=== PATIENT | female | born 1990 | race Caucasian/White ===

== ENCOUNTER 2022-10-25 07:33 | Emergency (ER) | payer OTHER, SELFPAY ==
--- NOTE | ~2022-10-25 | XR_ITS ---
EXAMINATION: XR CHEST CLINICAL INFORMATION: Chest pain COMPARISON: None available. TECHNIQUE: 2 views of the chest were obtained. FINDINGS: No significant abnormality is noted involving the heart, lungs, mediastinum, bony thorax or soft tissues. XR/XR chest 2V IMPRESSION: Unremarkable examination.
--- NOTE | 2022-10-25 07:45 | ECG_ITS ---
Test Reason : CP Blood Pressure : / mmHG Vent. Rate : 059 BPM Atrial Rate : 059 BPM P-R Int : 148 ms QRS Dur : 086 ms QT Int : 436 ms P-R-T Axes : 014 049 010 degrees QTc Int : 431 ms Sinus bradycardia Otherwise normal ECG No previous ECGs available Referred By: Yamilet Torres Electronically Signed By:ROSEY HAYNES
[2022-10-25 08:06] VITALS: BP 150/70; PULSE 70; O2SAT 97
[2022-10-25 08:08] VITALS: BP 145/87; PULSE 66; RESP 18; TEMP 36.6; O2SAT 98; BMI 47.9
--- NOTE | 2022-10-25 08:13 | ED_ITS ---
HPI - General Adult General Chief complaint: General Medical Stated complaint: R side chest pain per EMS Time Seen by Provider: 10/25/22 08:13 Source: patient, family (patient's mother) and EMS Mode of arrival: EMS Limitations: no limitations History of Present Illness HPI narrative: Patient is a 32 year old assigned female at with no reported medical history presenting to the emergency department today with right sided chest pain. Patient states that she is having constant right sided chest pain that is worse with movement. Patient states that it is going up to the right side of the neck as well. Patient denies any dizziness, lightheadedness, abdominal pain, nausea, vomiting, fever, chills, blurry vision, double vision, loss of vision, difficulty breathing, shortness of breath, back pain, night sweats, pain with urination, increased urinary frequency, increased urinary urgency, blood in her urine or stool, syncope or a near syncopal episode, recent trauma or falls, bowel incontinence, bladder incontinence, bowel retention, bladder retention, or any other complaints at this time. Onset (ago): hour(s) Location: chest, right and upper extremity Radiation: neck and extremity Severity: mild Severity scale (1-10): 3 Quality: dull Pain Consistency: constant Relieving factors: none Exacerbating factors: movement Associated symptoms: denies other symptoms Treatments prior to arrival: none Related Data Previous Rx's Medication Instructions Recorded cyclobenzaprine 5 mg tablet 5 mg PO TID PRN muscle spasm 7 10/25/22 days #21 tabs naproxen 500 mg tablet 500 mg PO BID 7 days #14 tabs 10/25/22 prednisone 20 mg tablet 20 mg PO DAILY 7 days #7 tabs 10/25/22 Allergies Allergy/AdvReac Type Severity Reaction Status Date / Time No Known Allergies Allergy Verified 10/25/22 09:33 Review of Systems Constitutional: Constitutional: Reports no additional constitutional complaints, Denies chills, Denies fever(s) and Denies night sweats Eyes: Eyes: Reports no additional eye complaints, Denies blurry vision, Denies change in vision, Denies diplopia, Denies eye discharge, Denies loss of vision and Denies eye pain ENT: Denies dizziness and Reports neck pain Cardiovascular: Cardiovascular: Reports no additional cardiovascular complaints, Reports chest pain, Denies lightheadedness, Denies Loss of Consciousness and Denies dyspnea Respiratory: Respiratory: Reports no additional respiratory complaints and Denies dyspnea Gastrointestinal: Gastrointestinal: Reports no additional gastrointestinal complaints, Denies abdominal pain, Denies melena, Denies hematochezia, Denies change in bowel habits and Denies change in stool character Genitourinary: Genitourinary: Denies hematuria, Denies urinary frequency, Denies dysuria, Denies urinary incontinence, Denies urinary hesitancy and Denies urinary urgency Musculoskeletal: Musculoskeletal: Reports no additional musculoskeletal complaints, Reports neck pain, Denies numbness and Denies tingling Neurologic: Denies dizziness, Denies loss of vision, Denies numbness and Denies tingling Psychiatric: Psychiatric: Reports no additional psychiatric complaints Endocrine: Endocrine: Reports no additional endocrine complaints Hematologic/Lymphatic: Hematologic/Lymphatic: Reports no additional hematologic/lymphatic complaints Allergic/Immunologic: Allergic/Immunologic: Reports no additional allergic/immunologic complaints PMFSH Past Medical History Attestation statement: The following information was validated with the patient. (all information validated with the patient's mother) Source: old records reviewed, obtained from family (patient's mother) and nursing notes reviewed Social History Social History Alcohol intake: current Alcohol intake frequency: holidays/special occasions only Smoked in Last 30 Days: No Advance Directives: No Advance Directives Information Provided: Yes Patient : No Physical Exam ED Vital Signs: Vital Signs - 24 hr 10/25/22 08:08 10/25/22 10:05 Temperature 98 F 98 F Pulse Rate 66 66 Respiratory Rate 18 18 Blood Pressure 145/87 H 145/87 H Pulse Oximetry 98 98 Oxygen Delivery Method Room Air Room Air BMI result Body Mass Index 47.9 Const General: cooperative, no acute distress, alert and awake Nutritional Appearance: well nourished Orientation/consciousness: patient oriented x3 Limitations: no limitations HENMT Head: Yes normal to inspection and Yes atraumatic Ears: hearing grossly normal bilaterally and external ears normal General nose exam: Normal external nose present, no nasal discharge noted and no epistaxis Face and sinus: Yes normal facial exam, No abrasion and No laceration Mouth: Normal oral and palatal mucosa present, no drooling and no muffled voice Eyes General: appearance normal, both eyes and all related structures Periorbital: periorbital findings normal Eyelids: Yes eyelids normal Conjunctivae: conjunctivae normal Pupils: Equal, round and reactive pupils present EOM: EOMs intact bilaterally Neck Neck: Yes normal visual inspection, Yes full ROM and Yes no lymphadenopathy Chest Chest palpation & inspection: normal inspection of the chest Resp Effort & Inspection: normal respiratory effort and able to speak in complete sentences Auscultation: clear to auscultation bilaterally Cardio Rate: regular rate Rhythm: regular rhythm GI Inspection: Yes normal to inspection Palpation (GI): Soft to palpation, not firm, nontender, no guarding and not rigid Neuro General: patient oriented x3 and moves all extremities Cranial nerves: Yes Equal, round and reactive pupils present Cognition (Neuro): normal cognition Motor exam (neuro): 5/5 motor strength present throughout Sensory Exam: Normal double simultaneous stimulation for sensation Coordination: [id number] test normal Extrem General: Yes normal to inspection, Yes full ROM and Yes capillary refill normal Psych Appearance: grossly normal Mental Status: mental status grossly normal Affect: normal affect Attitude: cooperative Thought process: Normal thought process present Thought content: Normal thought content present Insight: Good insight present (Psych) Medications Administered Discontinued Medications Generic Name Dose Route Start Last Admin Trade Name Pedroq PRN Reason Stop Dose Admin Cyclobenzaprine HCl 5 mg 10/25/22 08:45 10/25/22 09:32 Cyclobenzaprine Hcl 5 Mg Tablet PO 10/25/22 08:46 5 mg ONCE ONE Administration Ketorolac Tromethamine 15 mg 10/25/22 08:45 10/25/22 09:32 Ketorolac Tromethamine 15 Mg/Ml Vial IVPUSH 10/25/22 08:46 15 mg ONCE ONE Administration Methylprednisolone Sodium Succinate 60 mg 10/25/22 08:45 10/25/22 09:32 Methylprednisolone Sod Succ 125 Mg/2 Ml Vial IVPUSH 10/25/22 08:46 60 mg ONCE ONE Administration Medical Decision Making Medical Decision Making MDM Narrative: Patient is a 32 year old assigned female at with no reported medical history presenting to the emergency department today with right sided chest, shoulder, and neck pain. Patient's physical exam was unremarkable. Patient's blood work was unremarkable. Patient's EKG was unremarkable. Patient's chest x- ray showed no acute process. Patient's current clinical presentation is most consistent with cervical radiculopathy. I explained my physical exam findings as well as all test results to the patient. I answered all questions asked by the patient. I stressed the importance of the patient taking her medication as prescribed. I stressed the importance of the patient following up with her primary care provider. I stressed the importance of the patient returning to the emergency department immediately if her symptoms were to worsen or if she were to develop any dizziness, shortness of breath, difficulty breathing, chest pain, blurry vision, loss of vision, nausea, vomiting, abdominal pain, fever, chills, back pain, or any other complaints. Patient verbalized agreement and understanding with this treatment plan and discharge. Differential Diagnosis Differential Diagnoses: The differential diagnosis associated with the presentation includes cervical radiculopathy Admission/Observation Consideration of admission/observation: Escalation of care including admis vincent/observation considered Patient would have been admitted had there been a cardiovascular process causing her chest pain. Lab Data MDM Lab Attestation statement: I reviewed the patient's lab results. 10/25/22 09:36 10/25/22 09:36 Labs: Lab Results 10/25/22 10/25/22 10/25/22 Range/Units 09:36 09:36 09:36 WBC 7.8 (4.8-10.8) X10*3/uL RBC 4.09 L (4.20-5.50) X10*6/uL Hgb 12.5 (12.0-16.0) g/dl Hct 37.0 (37.0-47.0) % MCV 90.5 (80.0-98.0) fL MCH 30.6 (27.0-33.0) pg MCHC 33.8 (31.0-35.0) g/dl RDW 12.1 (11.0-16.0) % Plt Count 303 (160-400) X10*3/uL MPV 9.3 L (9.4-12.3) fL Immature Gran % (Auto) 0.3 (0.0-0.4) % Neut % (Auto) 68.1 (45-73) % Lymph % (Auto) 24.6 (20-40) % Barron % (Auto) 5.5 (2-11) % Eos % (Auto) 1.0 (0-4) % Baso % (Auto) 0.5 (0-2) % Lymph # (Auto) 1.9 (1.2-4.9) X10*3/uL Barron # (Auto) 0.4 (0.1-1.2) X10*3/uL Eos # (Auto) 0.1 (0.0-0.4) X10*3/uL Baso # (Auto) 0.0 (0.0-0.2) X10*3/uL Abs Immat Gran (auto) 0.02 (0.00-0.03) X10*3/uL Absolute Neuts (auto) 5.3 (2.0-8.3) x10*3/uL Absolute Nucleated RBC 0.000 (0.0-0.012) X10*3/uL Nucleated RBC % (auto) 0.0 (0.0-0.2) /100WBC Sodium 140 (135-145) mmol/L Potassium 4.3 (3.3-5.1) mmol/L Chloride 112 H (96-108) mmol/L Carbon Dioxide 22 (22-29) mmol/L Anion Gap 10 L (12-20) BUN 10 (9-16) mg/dL Creatinine 0.78 (0.5-1.4) mg/dL Estim Creat Clear Calc 137.7 Estimated GFR > 60 Random Glucose 91 (60-115) mg/dL Calcium 8.8 (8.4-10.2) mg/dL Magnesium 1.9 (1.6-2.6) mg/dL Total Bilirubin 0.5 (0.0-1.0) mg/dL AST 17 (5-31) U/L ALT 35 H (0-31) U/L Alkaline Phosphatase 53 (39-117) U/L Troponin I High Sens < 2.7 (<3.5-17.0) ng/L B-Natriuretic Peptide (<100) pg/mL Total Protein 6.6 (6.5-8.0) g/dL Albumin 4.0 (3.5-5.0) g/dL Beta HCG, Quant < 2 mIU/mL COVID-19 (M[facility]ADOU) (Negative) COVID-19 Clin Com 10/25/22 10/25/22 Range/Units 09:36 09:36 WBC (4.8-10.8) X10*3/uL RBC (4.20-5.50) X10*6/uL Hgb (12.0-16.0) g/dl Hct (37.0-47.0) % MCV (80.0-98.0) fL MCH (27.0-33.0) pg MCHC (31.0-35.0) g/dl RDW (11.0-16.0) % Plt Count (160-400) X10*3/uL MPV (9.4-12.3) fL Immature Gran % (Auto) (0.0-0.4) % Neut % (Auto) (45-73) % Lymph % (Auto) (20-40) % Barron % (Auto) (2-11) % Eos % (Auto) (0-4) % Baso % (Auto) (0-2) % Lymph # (Auto) (1.2-4.9) X10*3/uL Barron # (Auto) (0.1-1.2) X10*3/uL Eos # (Auto) (0.0-0.4) X10*3/uL Baso # (Auto) (0.0-0.2) X10*3/uL Abs Immat Gran (auto) (0.00-0.03) X10*3/uL Absolute Neuts (auto) (2.0-8.3) x10*3/uL Absolute Nucleated RBC (0.0-0.012) X10*3/uL Nucleated RBC % (auto) (0.0-0.2) /100WBC Sodium (135-145) mmol/L Potassium (3.3-5.1) mmol/L Chloride (96-108) mmol/L Carbon Dioxide (22-29) mmol/L Anion Gap (12-20) BUN (9-16) mg/dL Creatinine (0.5-1.4) mg/dL Estim Creat Clear Calc Estimated GFR Random Glucose (60-115) mg/dL Calcium (8.4-10.2) mg/dL Magnesium (1.6-2.6) mg/dL Total Bilirubin (0.0-1.0) mg/dL AST (5-31) U/L ALT (0-31) U/L Alkaline Phosphatase (39-117) U/L Troponin I High Sens (<3.5-17.0) ng/L B-Natriuretic Peptide < 10 (<100) pg/mL Total Protein (6.5-8.0) g/dL Albumin (3.5-5.0) g/dL Beta HCG, Quant mIU/mL COVID-19 ([facility]ADOU) Negative (Negative) COVID-19 Clin Com See Note Independent Interpretation I performed an independent interpretation of an: EKG and Plain X-Ray Interpretation: Vent. Rate: 059 BPM ? ? Atrial Rate: 059 BPM P-R Int: 148 ms? QRS Dur: 086 ms QT Int: 436 ms ? ? ? P-R-T Axes: 014 049 010 degrees QTc Int: 431 ms ? Sinus bradycardia Otherwise normal ECG No previous ECGs available ? Electronically Signed By:MACK JAIME Dictated By: Mack Jaime MD Signed By: Electronically signed by Mack Jaime MD 10/25/22 1404 My interpretation is in agreement with the radiologist's impression of this imaging study. EXAMINATION: XR CHEST CLINICAL INFORMATION: Chest pain COMPARISON: None available. TECHNIQUE: 2 views of the chest were obtained. FINDINGS: No significant abnormality is noted involving the heart, lungs, mediastinum, bony thorax or soft tissues. XR/XR chest 2V IMPRESSION: Unremarkable examination. Dictated By: Austen Diaz MD Signed By: Electronically signed by Austen Diaz MD 10/25/22 0811 Discharge Plan Discharge Clinical Impression: Cervical radiculopathy Patient Disposition: Home, Self-Care Instructions: Cervical Radiculopathy (ED) Additional Instructions: Follow up with your primary care provider and a division operations specialist. Return to the emergency department immediately if your symptoms worsen or if you develop any dizziness, shortness of breath, difficulty breathing, chest pain, blurry vision, loss of vision, nausea, vomiting, abdominal pain, fever, chills, back pain, or any other complaints. Prescriptions: New prednisone 20 mg tablet 20 mg PO DAILY 7 Days Qty: 7 0RF naproxen 500 mg tablet 500 mg PO BID 7 Days Qty: 14 0RF cyclobenzaprine 5 mg tablet 5 mg PO TID PRN (Reason: muscle spasm) 7 Days Qty: 21 0RF Referrals: [facility] Family [facility] [Provider Group] (Call to establish and follow up with a primary care provider. If you already have a primary care provider, please follow up with them.) [facility] Primary [facility] [Provider Group] (Call to establish and follow up with a primary care provider. If you already have a primary care provider, please follow up with them.) [facility] Primary CareHarry [Provider Group] (Call to establish and follow up with a primary care provider. If you already have a primary care provider, please follow up with them.) [facility] [Provider Group] (Call to establish and follow up with a division operations specialist. ) Stand Alone Forms: Work/School Release Interventions: ED Discharge Assessment Last Done: 10/25/22 10:33 Discharge Date/Time: 10/25/22 10:34 Print Language: Ethiopian
[2022-10-25] MEDS: methylPREDNISolone Sod Succ 125 MG/2 ML VIAL 60 MG IVPUSH (09:32)
[2022-10-25] MEDS: Cyclobenzaprine HCl 5 MG TABLET PO (09:32)
[2022-10-25] MEDS: Ketorolac Tromethamine 15 MG/ML VIAL IVPUSH (09:32)
[2022-10-25 09:42] LABS: MANUAL DIFF FLAG NO
[2022-10-25 09:46] LABS: Basophils Percent Auto 0.5 % (0-2); Eosinophils Absolute Auto 0.1 X10*3/uL (0.0-0.4); Hemoglobin 12.5 g/dl (12.0-16.0); Imm Gran Abs Auto 0.02 X10*3/uL (0.00-0.03); Imm Gran Pct Auto 0.3 % (0.0-0.4); Lymphocytes Absolute Auto 1.9 X10*3/uL (1.2-4.9); Lymphocytes Percent Auto 24.6 % (20-40); Mean Corpuscular HGB Conc 33.8 g/dl (31.0-35.0); Mean Corpuscular Hemoglobin 30.6 pg (27.0-33.0); Mean Corpuscular Volume 90.5 fL (80.0-98.0); Mean Platelet Volume 9.3 fL (9.4-12.3); Monocytes Absolute Auto 0.4 X10*3/uL (0.1-1.2); Monocytes Percent Auto 5.5 % (2-11); Neutrophils Absolute Auto 5.3 x10*3/uL (2.0-8.3); Neutrophils Percent Auto 68.1 % (45-73); Platelet Count 303 X10*3/uL (160-400); Red Blood Count 4.09 X10*6/uL (4.20-5.50); Red Cell Distribution Width 12.1 % (11.0-16.0); White Blood Count 7.8 X10*3/uL (4.8-10.8)
[2022-10-25 10:01] LABS: COVID-19 Test Negative (Negative); IDNOW Serial# BCCEAD1C
[2022-10-25 10:05] VITALS: BP 145/87; PULSE 66; RESP 18; TEMP 36.6; O2SAT 98
[2022-10-25 10:07] LABS: B Type Natriuretic Peptide < 10 pg/mL (<100)
[2022-10-25 10:08] LABS: Alanine Aminotransferase 35 U/L (0-31); Alkaline Phosphatase 53 U/L (39-117); Anion Gap 10 (12-20); Aspartate Amino Transferase 17 U/L (5-31); Bilirubin Total 0.5 mg/dL (0.0-1.0); Blood Urea Nitrogen 10 mg/dL (9-16); Calcium 8.8 mg/dL (8.4-10.2); Carbon Dioxide 22 mmol/L (22-29); Chloride 112 mmol/L (96-108); Creatinine Clr Calc Pharmacy 137.7; Estimated Glomerular Filt Rate > 60; Glucose Random 91 mg/dL (60-115); Magnesium 1.9 mg/dL (1.6-2.6); Potassium 4.3 mmol/L (3.3-5.1); Sodium 140 mmol/L (135-145); Total Protein 6.6 g/dL (6.5-8.0)
[2022-10-25 10:13] LABS: HCG Quantitative < 2 mIU/mL; Troponin-I High Sensitivity < 2.7 ng/L (<3.5-17.0)
== END 2022-10-25 10:34 | disposition home or self-care (01) ==
PROVIDERS: Physician Assistant Medical; Emergency Provider Emergency Medicine Emergency Medical Services
DX: M54.12 Radiculopathy, cervical region (principal); Z20.822 Contact with and (suspected) exposure to COVID-19; R07.9 Chest pain, unspecified
CPT/HCPCS: 71046; 80053; 83735; 83880; 84484; 84702; 85025; 87635; 93005; 96374; 96375; 99284; 99285; J1885; J2930

== ENCOUNTER 2023-08-17 18:58 | Emergency (ER) | payer OTHER, SELFPAY ==
--- NOTE | ~2023-08-17 | US_ITS ---
EXAMINATION: US ABDOMEN LIMITED CLINICAL INFORMATION: Right upper quadrant pain, biliary colic.. COMPARISON: None available. TECHNIQUE: Real-time imaging of the right upper quadrant abdominal viscera. FINDINGS: PANCREAS: Normal. LIVER: Normal. The liver is normal in size. The liver contour is normal. Parenchymal echogenicity is normal. No focal hepatic lesion. There is no intrahepatic biliary duct dilatation seen. GALLBLADDER: There are multiple echogenic stones with gallbladder wall thickness of 0.3 cm. COMMON BILE DUCT: Normal in caliber measuring 0.62 cm in diameter. RIGHT KIDNEY: There is a small echogenic lesion in the lower pole right kidney suggestive of angiomyolipoma. Measures 0.5 x 0.5 x 0.6 cm. No hydronephrosis. No renal calculi or focal parenchymal lesions. The kidney measures 11.2 cm in maximum dimension. FREE FLUID: None. US/US abdomen limited IMPRESSION: 1. Cholelithiasis without wall thickening. 2. Small angiomyolipoma lower pole right kidney. 3. Rest of the abdominal ultrasound is unremarkable.
[2023-08-17 19:09] VITALS: BP 146/83; PULSE 57; RESP 20; TEMP 36.4; O2SAT 100; BMI 44.2
--- NOTE | 2023-08-17 19:15 | ED.ABDPAIN ---
HPI - Abdominal Pain General Chief Complaint: Abdominal Pain Stated Complaint: abdominal pain, 2 weeks post Time Seen by Provider: 08/17/23 19:00 Source: patient and EMS Mode of arrival: EMS Limitations: no limitations History of Present Illness HPI narrative: patient had a baby 2 weeks ago. Today slowly developed epigastric pain going into the back that got progressively worse. She denies any history of gallstones MD elicited complaint: abdominal pain Onset (ago): hour(s) Pain Consistency: constant Location: epigastric Severity: moderate Quality: aching Radiation: back Related Data Previous Rx's Medication Instructions Recorded cyclobenzaprine 5 mg tablet 5 mg PO TID PRN muscle spasm 7 10/25/22 days #21 tabs naproxen 500 mg tablet 500 mg PO BID 7 days #14 tabs 10/25/22 prednisone 20 mg tablet 20 mg PO DAILY 7 days #7 tabs 10/25/22 ondansetron 4 mg disintegrating 4 mg PO Q8H PRN nausea and 08/17/23 tablet vomiting 5 days #15 tabs pantoprazole 40 mg tablet,delayed 40 mg PO DAILY #20 tabs 08/17/23 release (Protonix) Allergies Allergy/AdvReac Type Severity Reaction Status Date / Time No Known Allergies Allergy Verified 10/25/22 09:33 Review of Systems Review of Systems Yes all other systems are reviewed and are negative Denies Sensory deficit (Neuro) [facility] Social History Social History Alcohol intake: current Alcohol intake frequency: holidays/special occasions only Smoked in Last 30 Days: No Use of substances other than those prescribed or required for medical reasons: No Advance Directives: No Advance Directives Information Provided: No Patient : No Physical Exam ED Vital Signs: Vital Signs - 24 hr 08/17/23 19:09 Temperature 97.5 F Pulse Rate 57 Respiratory Rate 20 Blood Pressure 146/83 H Pulse Oximetry 100 Oxygen Delivery Method Room Air BMI result Body Mass Index 44.2 Const Other: patient with a lot of pain with wretching Nutritional Appearance: obese Orientation/consciousness: oriented to person and patient oriented x3 Limitations: no limitations HENMT Head: Yes normal to inspection Ears: external ears normal General nose exam: Normal external nose present Mouth: Normal oral and palatal mucosa present and oropharynx normal Throat: Yes posterior oropharynx normal Eyes General: appearance normal, both eyes and all related structures Neck Neck: Yes normal visual inspection Chest Chest palpation & inspection: normal inspection of the chest Resp Auscultation: clear to auscultation bilaterally Cardio Jugular venous distension: no JVD Rate: regular rate Rhythm: regular rhythm Heart sounds: S1 normal heart sound present and S2 normal heart sound present GI Other: right upper quadrant abdominal tenderness with guarding Palpation (GI): No hepatosplenomegaly present Auscultation: normal bowel sounds General: Yes no CVA tenderness Back/Spine/Pelvis Back: no CVA tenderness Skin General skin exam: no rashes or lesions noted Neuro General: oriented to person and patient oriented x3 Cranial nerves: Yes CN's II-XII intact bilaterally Motor exam (neuro): 5/5 motor strength present throughout Sensory Exam: No Sensory deficit (Neuro) Extrem General: Yes normal to inspection Psych Appearance: grossly normal Course Reevaluation(s) Reevaluation #1: patient improved feeling better, no evidence of cholecystits or CBD obstruction or pancreatitis or ascending cholangitis Time: 21:46 Medical Decision Making Differential Diagnosis Differential Diagnoses: The differential diagnosis associated with the presentation includes (cholecystitis, ascending cholangitis, biliary colic, pancreatitis were all considered) Admission/Observation Consideration of admission/observation: Escalation of care including admission/observation considered (Upon arrival patient considered for admission) Lab Data MDM Lab Attestation statement: I reviewed the patient's lab results. 08/17/23 19:22 08/17/23 19:22 Labs: Lab Results 08/17/23 Range/Units 19:22 WBC 9.2 (4.8-10.8) X10*3/uL RBC 4.40 (4.20-5.50) X10*6/uL Hgb 12.1 (12.0-16.0) g/dl Hct 36.6 L (37.0-47.0) % MCV 83.2 (80.0-98.0) fL MCH 27.5 (27.0-33.0) pg MCHC 33.1 (31.0-35.0) g/dl RDW 13.6 (11.0-16.0) % Plt Count 361 (160-400) X10*3/uL MPV 9.4 (9.4-12.3) fL Immature Gran % (Auto) 0.2 (0.0-0.4) % Neut % (Auto) 78.8 H (45-73) % Lymph % (Auto) 14.1 L (20-40) % [place]ether % (Auto) 5.4 (2-11) % Eos % (Auto) 1.1 (0-4) % Baso % (Auto) 0.4 (0-2) % Lymph # (Auto) 1.3 (1.2-4.9) X10*3/uL Meriwether # (Auto) 0.5 (0.1-1.2) X10*3/uL Eos # (Auto) 0.1 (0.0-0.4) X10*3/uL Baso # (Auto) 0.0 (0.0-0.2) X10*3/uL Abs Immat Gran (auto) 0.02 (0.00-0.03) X10*3/uL Absolute Neuts (auto) 7.2 (2.0-8.3) x10*3/uL Absolute Nucleated RBC 0.000 (0.0-0.012) X10*3/uL Nucleated RBC % (auto) 0.0 (0.0-0.2) /100WBC Hold Blue Top SEE NOTE Sodium 141 (135-145) mmol/L Potassium 3.7 (3.3-5.1) mmol/L Chloride 107 (96-108) mmol/L Carbon Dioxide 23 (22-29) mmol/L Anion Gap 15 (12-20) BUN 11 (9-16) mg/dL Creatinine 0.87 (0.5-1.4) mg/dL Estim Creat Clear Calc 116.5 Estimated GFR > 60 Random Glucose 90 (60-115) mg/dL Calcium 9.4 D (8.4-10.2) mg/dL Total Bilirubin 0.7 (0.0-1.0) mg/dL AST 49 H (5-31) U/L ALT 39 H (0-31) U/L Alkaline Phosphatase 84 (39-117) U/L Total Protein 7.2 (6.5-8.0) g/dL Albumin 4.1 (3.5-5.0) g/dL Lipase 17 (8-78) U/L Independent Interpretation I performed an independent interpretation of an: Ultrasound (bedside ultrasound showed Gallstones. Official US the same) Radiology Impression Discussion of test interpretation with radiology: I have reviewed the radiologist's reading. Independent Historian Clinical information obtained from an independent historian. History obtained from or confirmed by: Spouse and EMS Prescription Management I considered prescription management with: Pain Medication (patient improved will not give narcotics at this time) Medications Administered Generic Name Dose Route Start Last Admin Trade Name Freq PRN Reason Stop Dose Admin Sodium Chloride 1,000 mls @ 250 mls/hr 08/17/23 19:30 08/17/23 19:27 Ns IVCONT 08/17/23 23:29 250 mls/hr .Q4H DAVIS Administration Discontinued Medications Generic Name Dose Route Start Last Admin Trade Name Freq PRN Reason Stop Dose Admin Morphine Sulfate 4 mg 08/17/23 19:16 08/17/23 19:26 Morphine Sulfate 4 Mg/Ml Cartridge IVPUSH 08/17/23 19:17 4 mg ONCE ONE Administration Protocol Ondansetron HCl 4 mg 08/17/23 19:16 08/17/23 19:27 Ondansetron Hcl 4 Mg/2 Ml Vial IVPUSH 08/17/23 19:17 4 mg ONCE ONE Administration Pantoprazole Sodium 40 mg 08/17/23 19:16 08/17/23 19:27 Pantoprazole Sodium 40 Mg/10 Ml Vial IVPUSH 08/17/23 19:17 40 mg ONCE ONE Administration Discharge Plan Discharge Clinical Impression: Gallstones, Biliary colic Patient Disposition: Home, Self-Care Instructions: Biliary Colic (ED), Gallstones (ED) Prescriptions: New pantoprazole [Protonix] 40 mg tablet,delayed release (DR/EC) 40 mg PO DAILY Qty: 20 0RF ondansetron 4 mg tablet,disintegrating 4 mg PO Q8H PRN (Reason: nausea and vomiting) 5 Days Qty: 15 0RF No Action prednisone 20 mg tablet 20 mg PO DAILY 7 Days Qty: 7 0RF naproxen 500 mg tablet 500 mg PO BID 7 Days Qty: 14 0RF cyclobenzaprine 5 mg tablet 5 mg PO TID PRN (Reason: muscle spasm) 7 Days Qty: 21 0RF Referrals: Bayron Valdze MD [Physician] - 1 week
[2023-08-17] MEDS: Morphine Sulfate 4 MG/ML CARTRIDGE IVPUSH (19:26)
[2023-08-17] MEDS: 0.9 % Sodium Chloride 1,000 ML 250 ML IVCONT (19:27)
[2023-08-17] MEDS: Pantoprazole Sodium 40 MG/10 ML VIAL IVPUSH (19:27)
[2023-08-17] MEDS: ondansetron HCL 4 MG/2 ML VIAL IVPUSH (19:27)
[2023-08-17 19:35] LABS: MANUAL DIFF FLAG NO
[2023-08-17 19:37] LABS: Basophils Percent Auto 0.4 % (0-2); Eosinophils Absolute Auto 0.1 X10*3/uL (0.0-0.4); Eosinophils Percent Auto 1.1 % (0-4); Hematocrit 36.6 % (37.0-47.0); Hemoglobin 12.1 g/dl (12.0-16.0); Imm Gran Abs Auto 0.02 X10*3/uL (0.00-0.03); Imm Gran Pct Auto 0.2 % (0.0-0.4); Lymphocytes Absolute Auto 1.3 X10*3/uL (1.2-4.9); Lymphocytes Percent Auto 14.1 % (20-40); Mean Corpuscular HGB Conc 33.1 g/dl (31.0-35.0); Mean Corpuscular Hemoglobin 27.5 pg (27.0-33.0); Mean Corpuscular Volume 83.2 fL (80.0-98.0); Mean Platelet Volume 9.4 fL (9.4-12.3); Monocytes Absolute Auto 0.5 X10*3/uL (0.1-1.2); Monocytes Percent Auto 5.4 % (2-11); Neutrophils Absolute Auto 7.2 x10*3/uL (2.0-8.3); Neutrophils Percent Auto 78.8 % (45-73); Platelet Count 361 X10*3/uL (160-400); Red Cell Distribution Width 13.6 % (11.0-16.0); White Blood Count 9.2 X10*3/uL (4.8-10.8)
[2023-08-17 19:52] LABS: Alanine Aminotransferase 39 U/L (0-31); Albumin Level 4.1 g/dL (3.5-5.0); Alkaline Phosphatase 84 U/L (39-117); Anion Gap 15 (12-20); Aspartate Amino Transferase 49 U/L (5-31); Bilirubin Total 0.7 mg/dL (0.0-1.0); Blood Urea Nitrogen 11 mg/dL (9-16); Calcium 9.4 mg/dL (8.4-10.2); Carbon Dioxide 23 mmol/L (22-29); Chloride 107 mmol/L (96-108); Creatinine Clr Calc Pharmacy 116.5; Estimated Glomerular Filt Rate > 60; Glucose Random 90 mg/dL (60-115); Lipase 17 U/L (8-78); Potassium 3.7 mmol/L (3.3-5.1); Sodium 141 mmol/L (135-145); Total Protein 7.2 g/dL (6.5-8.0)
[2023-08-17 22:10] VITALS: PULSE 64; RESP 16
== END 2023-08-17 22:44 | disposition home or self-care (01) ==
PROVIDERS: Emergency Provider Emergency Medicine
DX: O99.63 Diseases of the digestive system complicating the puerperium (principal); K80.70 Calculus of gallbladder and bile duct without cholecystitis without obstruction
CPT/HCPCS: 36415; 76705; 80053; 83690; 85025; 96374; 96375; 99284; C9113; J2270; J2405

== ENCOUNTER 2023-08-28 15:35 | Outpatient (AMB) | payer OTHER, SELFPAY ==
--- NOTE | 2023-08-28 15:41 | MHC.OFFVIS ---
Intake Vital Signs 08/28/23 15:52 Height 5 ft 4 in Weight 270 lb BMI 46.3 BP 120/80 Blood Pressure Location Lt brachial Position Sitting Intake Visit Reasons: gallstones Intake Note: Patient is seen in office for ER follow up visit, following for gallstones. Pt c/o: RUQ pain, radiates to the back, admits to nausea, had a flare up on Sunday, consistent to the right area, used warm compress with minimal relief, denies any other concerns us abd:08/17/23 Validation Software Facilitator Required: No Accompanied by: Self / Same As Patient Allergies No Known Allergies Allergy (Verified 08/28/23 15:49) Medication List - Last Reconciled 08/29/23 by Bayron Valdez MD ondansetron 4 mg PO Q8H PRN 5 days HPI HPI Comments History of Present Illness Details 33-year-old female patient presenting with complaints of abdominal pain in the right upper quadrant. The pain began soon after she delivered her 2nd baby several weeks ago. The pain became quite severe and she subsequently presented to the emergency department on 08/17/2023. Workup in the emergency department revealed tenderness in the right upper quadrant with mildly elevated liver function tests. Ultrasound of the abdomen revealed cholelithiasis with a sonographic Grigsby sign. Since this time she has had another flare-up over the weekend which improved after taking magnesium and applying a warm compress. She reports severe heartburn and indigestion during her but denies significant abdominal pain as she is now experiencing. She presents today to discuss possible cholecystectomy. She denies fever, chills, nausea or vomiting, diarrhea or constipation. PFSH Surgical History (Updated 08/28/23 @ 15:48 by MARIELOS Monreal) Hx of endoscopy Hx of colonoscopy Social History Alcohol intake: current Alcohol intake frequency: holidays/special occasions only Female Reproductive History Menstrual Total pregnancies: 2 Full term: 2 Review of Systems Const All systems reviewed & are unremarkable except as noted in HPI and below Physical Exam Vital Signs: Last Vital Signs BP 120/80 08/28/23 15:52 BMI result Body Mass Index 46.3 Const General: cooperative and no acute distress Nutritional Appearance: well nourished Orientation/consciousness: patient oriented x3 Limitations: no limitations HEENT Head: Yes normocephalic and Yes atraumatic Ears: hearing grossly normal bilaterally Resp Effort & Inspection: normal respiratory effort, no audible wheezes, no cough and no respiratory distress Cardio Jugular venous distension: no JVD GI Inspection: Yes normal to inspection Palpation (GI): Soft to palpation, Tenderness to palpation present (GI) in the RUQ; Grigsby's sign negative, no guarding, not rigid and No hepatosplenomegaly present Auscultation: normal bowel sounds Rectal Exam - Female: deferred Skin Other: Warm, dry, no rash, normal color Neuro General: patient oriented x3 Extrem General: Yes no clubbing, cyanosis or edema Assessment & Plan Assessment & Plan (1) Gallstones: Code(s): K80.20 - Calculus of gallbladder without cholecystitis without obstruction (2) Biliary colic: Code(s): K80.50 - Calculus of bile duct without cholangitis or cholecystitis without obstruction Plan 33-year-old female patient presenting with complaints of episodes of right upper quadrant abdominal pain radiating to the back which required a visit to the emergency department with severity. Patient was found to have biliary colic due to cholelithiasis. She continues to have some mild symptoms in the right upper quadrant and is interested in proceeding to laparoscopic cholecystectomy. I reviewed the procedure, risks, and alternatives in detail and she consents to the laparoscopic or possible open cholecystectomy. She will be scheduled as a short-stay surgery. Coding Level of Care Code New Pt Level 4 (50615) Diagnoses Gallstones K80.20 Biliary colic K80.50
[2023-08-28 15:52] VITALS: BP 120/80; BMI 46.3
== END 2023-08-28 16:03 | disposition home or self-care (01) ==
PROVIDERS: Visit Provider Surgery
DX: K80.20 Calculus of gallbladder without cholecystitis without obstruction (principal); K80.50 Calculus of bile duct without cholangitis or cholecystitis without obstruction
CPT/HCPCS: 99204

== ENCOUNTER → 2023-08-28 15:35 | Outpatient (BNVA) | payer OTHER, SELFPAY | PROVIDERS: Visit Provider Surgery ==

== ENCOUNTER 2023-09-06 00:36 | Emergency (ER) | payer OTHER, SELFPAY ==
[2023-09-06 00:42] VITALS: BP 136/86; PULSE 101; RESP 18; TEMP 36.4; O2SAT 100; BMI 46.4
[2023-09-06 01:18] LABS: MANUAL DIFF FLAG NO
[2023-09-06 01:19] LABS: Basophils Percent Auto 0.3 % (0-2); Eosinophils Absolute Auto 0.2 X10*3/uL (0.0-0.4); Eosinophils Percent Auto 1.4 % (0-4); Hematocrit 34.4 % (37.0-47.0); Hemoglobin 11.4 g/dl (12.0-16.0); Imm Gran Abs Auto 0.04 X10*3/uL (0.00-0.03); Imm Gran Pct Auto 0.3 % (0.0-0.4); Lymphocytes Absolute Auto 2.3 X10*3/uL (1.2-4.9); Lymphocytes Percent Auto 19.8 % (20-40); Mean Corpuscular HGB Conc 33.1 g/dl (31.0-35.0); Mean Corpuscular Hemoglobin 27.6 pg (27.0-33.0); Mean Corpuscular Volume 83.3 fL (80.0-98.0); Mean Platelet Volume 9.7 fL (9.4-12.3); Monocytes Absolute Auto 0.5 X10*3/uL (0.1-1.2); Monocytes Percent Auto 4.6 % (2-11); Neutrophils Absolute Auto 8.4 x10*3/uL (2.0-8.3); Neutrophils Percent Auto 73.6 % (45-73); Platelet Count 341 X10*3/uL (160-400); Red Blood Count 4.13 X10*6/uL (4.20-5.50); Red Cell Distribution Width 14.5 % (11.0-16.0); White Blood Count 11.4 X10*3/uL (4.8-10.8)
[2023-09-06 01:35] LABS: Alanine Aminotransferase 50 U/L (0-31); Albumin Level 4.2 g/dL (3.5-5.0); Alkaline Phosphatase 82 U/L (39-117); Anion Gap 16 (12-20); Aspartate Amino Transferase 73 U/L (5-31); Bilirubin Total 0.4 mg/dL (0.0-1.0); Blood Urea Nitrogen 11 mg/dL (9-16); Calcium 9.2 mg/dL (8.4-10.2); Carbon Dioxide 23 mmol/L (22-29); Chloride 105 mmol/L (96-108); Creatinine Clr Calc Pharmacy 133.8; Estimated Glomerular Filt Rate > 60; Glucose Random 92 mg/dL (60-115); Potassium 3.8 mmol/L (3.3-5.1); Sodium 140 mmol/L (135-145); Total Protein 7.1 g/dL (6.5-8.0)
== END 2023-09-06 05:18 | disposition left against medical advice (07) ==
LOC: HO.ED 05:15
PROVIDERS: Emergency Provider Emergency Medicine
DX: K80.20 Calculus of gallbladder without cholecystitis without obstruction (principal); Z79.899 Other long term (current) drug therapy
CPT/HCPCS: 36415; 80053; 85025; 99281; 99283

== ENCOUNTER 2023-09-10 10:48 | Day surgery (SDC) | payer OTHER, SELFPAY ==
[2023-09-06 10:07] VITALS: BMI 46.3
--- NOTE | 2023-09-07 10:24 | P.CONAN_ITS ---
Documented by User: Izabel Márquez NP 09/07/23 10:25 HPI - Anesthesia Eval Consult details Narrative: 33yo F for Cholecystectomy Laparoscopic, Possible Open Several weeks per surgical H&P [facility] Active Problems Active Problems: All Active Problems (Updated 09/06/23 @ 10:06 by Joanie Duong RN) Biliary colic (Acute) Gallstones (Acute) Past Medical History Medical History Biju's disease Heartburn during Gallstone Surgical History Surgical History Hx of endoscopy Hx of colonoscopy Social History Social History Alcohol intake: current Alcohol intake frequency: holidays/special occasions only Patient Tobacco Use Status: Never used Tobacco Use of substances other than those prescribed or required for medical reasons: No Are you DNR?: No Advance Directives: No Advance Directives Information Provided: Yes Meds Allergies Allergy/AdvReac Type Severity Reaction Status Date / Time No Known Allergies Allergy Verified 09/10/23 11:22 Home Medications Medication Instructions Recorded Confirmed Last Taken Type multivitamin 1 tab PO DAILY 09/10/23 09/10/23 09/10/23 05:00 History Exam Height,Weight and Vital Signs: Height 5 ft 4 in Weight 122.47 kg Pertinent Lab Results Pertinent Lab Results: Laboratory Tests 09/06/23 01:05 WBC 11.4 H Hgb 11.4 L Hct 34.4 L Plt Count 341 Sodium 140 Potassium 3.8 Chloride 105 Carbon Dioxide 23 BUN 11 Creatinine 0.78 Assessment and Plan Assessment Anesthesia Assessment: Chart Reviewed Documented by User: Gutierrez Ojeda MD 09/10/23 11:53 [facility] Past Medical History Medical History Biju's disease Heartburn during Gallstone Family History Family history of problems with anesthesia: No Surgical History Surgical History Hx of endoscopy Hx of colonoscopy History of Problems with Anesthesia: No Social History Social History Alcohol intake: current Alcohol intake frequency: holidays/special occasions only Patient Tobacco Use Status: Never used Tobacco Use of substances other than those prescribed or required for medical reasons: No Are you DNR?: No Advance Directives: No Advance Directives Information Provided: Yes Meds Allergies Allergy/AdvReac Type Severity Reaction Status Date / Time No Known Allergies Allergy Verified 09/10/23 11:22 Home Medications Medication Instructions Recorded Confirmed Last Taken Type multivitamin 1 tab PO DAILY 09/10/23 09/10/23 09/10/23 05:00 History Exam Airway Mallampati Class: IV TM Dist: <=3cm Neck ROM: Full Loose/Missing/Broken Teeth: No Heart: rrr Lungs: cta b/l Assessment and Plan Final Anesthetic Review Family History of Problems with Anesthesia: No History of Problems with Anesthesia: No NPO: Yes ASA Class: III Final Preanesthetic Review: No Changes in Pt Med Stat, Meds/Allgs Chart Reviewed, Consent Obtained/Reviewed and Anes Risks/Benef Reviewed Patient Risk: Intermediate Procedure Risk: Intermediate Anesthetic Plan Anesthetic Plan: GA Disposition: Standard PACU
[2023-09-10] VITALS (8 sets, daily range): BP systolic 124–147; BP diastolic 80–92; PULSE 62–84; RESP 14–21; TEMP 36.1–36.6; O2SAT 97–100; BMI 45.5
[2023-09-10 11:32] LABS: UPreg QC Valid YES; Urine Pregnancy NEGATIVE (NEGATIVE)
[2023-09-10] MEDS: Lactated Ringers 1,000 ML 100 ML IVCONT (11:42)
--- NOTE | 2023-09-10 12:28 | MHC.SHP ---
Pre-Procedural Eval Section A - 24 Hr Update-Section A only Date of Service: 09/10/23 The patient is an INPATIENT: No Changes since office visit: Yes Patient answered all questions; No Cold of Flu in the past 2 weeks, No New Medical Problems and No Changes in Medication The patient has been examined within 24 hours of the surgical procedure. The History & Physical has been completed within 30 days and I have reviewed it.: Yes Section B - Complete if H&P > 30 days Chief Complaint: Calculus of gallbladder without cholecystitis with Allergies: Allergies Allergy/AdvReac Type Severity Reaction Status Date / Time No Known Allergies Allergy Verified 09/10/23 11:22 Plan Diagnosis/Plan: Unchanged I have reviewed the history and physical and performed a pertinent physical examination on my patient. No changes have occurred unless specified. Time Spent With Patient Time: Total time managing care of this patient today ____ minutes.
--- NOTE | 2023-09-10 12:43 | W.PM.OPN ---
Operative Note Operative Note Date of Service: 09/10/23 Narrative: Preoperative diagnosis: Biliary colic, gallstones Postoperative diagnosis: Same Procedure: Laparoscopic cholecystectomy Surgeon: Bayron Valdez MD Oiling Machine Operator: Lula Lee PA-C, MARINO Laughlin Anesthesia: General endotracheal Indications for procedure: 33-year-old female patient presenting with complaints of abdominal pain in the right upper quadrant found to have multiple gallstones within the gallbladder. Findings suggestive of biliary colic. Operative findings: Contracted gallbladder with multiple small yellow gallstones, multifaceted Specimen: Gallbladder Estimated blood loss: 3 mL Complications: None Procedure details: Patient was brought to the OR placed in a supine position. After administering general anesthesia the patient's abdomen was prepped with ChloraPrep and draped in a sterile fashion. A surgical time-out was called the consent confirmed. Patient received preoperative antibiotics and Venodyne boots were in place. Local anesthesia was infiltrated in the periumbilical incision. A 5 mm incision was then made with a scalpel at the umbilicus. A Veress needle was then inserted while elevating the abdominal wall with towel clips. After positive drop test the abdomen was insufflated to a pressure of 15 mmHg. A 5 mm trocar was then inserted under direct vision. A 12 mm trocar was then placed in the epigastrium and 2 5 mm trocars in the right upper quadrant. The patient was then placed in a reverse Trendelenburg position and rotated to the left. The gallbladder was identified and grabbed with the assistance grasper. This was retracted cephalad. A 2nd grasper was used to retract the gallbladder away from the liver bed. Peritoneum was then taken down off the gallbladder wall to expose the cystic duct and cystic artery. After obtaining a critical view of the cystic duct and artery, the cystic artery was doubly clipped and divided. The cystic duct was further identified slightly further down and doubly clipped and divided. A endoloop was used to secure the cystic duct as well. Gallbladder was then dissected off the liver bed using electrocautery and the hook dissector. Adequate hemostasis was assured at all times using electrocautery. The gallbladder was placed in an Endo-Catch bag and brought out through the epigastric incision. The liver bed was then thoroughly irrigated with saline solution and suctioned dry. Several drops stones were identified and removed at this time. CO2 was then evacuated from the abdominal cavity. No bleeding was noted from the trocar sites. Trocars removed under direct vision. Fascia was then closed with the epigastric incision using a [id number] 0 Polysorb suture. Remaining incisions were then closed using a subcuticular 4-0 Polysorb suture. Steri-Strips 2 x 2 gauze and Tegaderm were then applied. The patient tolerated the procedure well. Sponge, instrument, and needle counts reported as correct. The patient was transferred to PACU in stable condition.
[2023-09-10] MEDS: HYDROmorphone HCl 0.5 MG/0.5 ML SYRINGE IVPUSH (14:06)
[2023-09-10] MEDS: fentaNYL citrate/PF 100 MCG/2 ML VIAL 25 MCG IVPUSH (14:21)
[2023-09-10] MEDS: ondansetron HCL 4 MG/2 ML VIAL IVPUSH (14:36)
== END 2023-09-10 15:18 | disposition home or self-care (01) ==
PROVIDERS: Nurse Practitioner; Visit Provider Surgery
PROC: 0FT44ZZ Resection of Gallbladder, Percutaneous Endoscopic Approach (ICD-10-PCS; CPT 47562; principal; 2023-09-10 12:30)
DX: K80.10 Calculus of gallbladder with chronic cholecystitis without obstruction (principal); Z79.899 Other long term (current) drug therapy
CPT/HCPCS: 47562; 81025; 88304; J0131; J1170; J1885; J2405; J2704; J2795; J3010

== ENCOUNTER → 2023-09-10 10:48 | Outpatient (BNV) | payer OTHER, SELFPAY | PROVIDERS: Visit Provider Surgery | DX: K80.20 Calculus of gallbladder without cholecystitis without obstruction (principal); K80.50 Calculus of bile duct without cholangitis or cholecystitis without obstruction | CPT/HCPCS: 47562 ==

== ENCOUNTER 2023-09-20 15:23 | Outpatient (AMB) | payer OTHER, SELFPAY ==
--- NOTE | 2023-09-20 15:26 | A.OFFVIS_ITS ---
Intake Vital Signs 09/20/23 15:34 Height 5 ft 4 in Weight 264 lb 6 oz BMI 45.4 BP 140/90 H Blood Pressure Location Lt brachial Position Sitting Pulse 78 Intake Visit Reasons: S/P lap lainey Intake Note: Patient is seen in office for post op assessment post laparoscopic cholecystectomy. Patient c/o: denies any concerns Op:09/10/23 Ed Transporter Required: No Accompanied by: Self / Same As Patient Allergies No Known Allergies Allergy (Verified 09/10/23 11:22) HPI HPI Comments History of Present Illness Details 33-year-old female returning 1 week foll owing laparoscopic cholecystectomy. She reports 2 days of abdominal pain but is now asymptomatic. She denies any bleeding or discharge from the incisions. She is eating well and denies any difficulty with her bowels. Pathology revealed chronic cholecystitis and cholelithiasis. [facility] Medical History Biju's disease Heartburn during Gallstone Surgical History (Updated 09/20/23 @ 11:48 by MARIELOS Monreal) Hx laparoscopic cholecystectomy (09/10/23) Hx of endoscopy Hx of colonoscopy Social History Alcohol intake: current Alcohol intake frequency: holidays/special occasions only Patient Tobacco Use Status: Never used Tobacco Physical Exam Const General: no acute distress GI Other: Trocar incisions are clean, dry, and intact without redness or discharge. Skin Other: Warm, dry, no rash, normal color Extrem General: Yes no clubbing, cyanosis or edema Assessment & Plan Assessment & Plan (1) Biliary colic: Code(s): K80.50 - Calculus of bile duct without cholangitis or cholecystitis without obstruction (2) Gallstones: Code(s): K80.20 - Calculus of gallbladder without cholecystitis without obstruction Plan Patient returns 1 week following laparoscopic cholecystectomy. Her wounds are clean, dry, and intact without redness or discharge. She should continue to avoid lifting greater than 10 lb for 1 more week after which he may resume normal activity. She should follow up as needed. Coding Level of Care Code Global (31345) Diagnoses Biliary colic K80.50 Gallstones K80.20
[2023-09-20 15:34] VITALS: BP 140/90; PULSE 78; BMI 45.4
== END 2023-09-20 15:38 | disposition home or self-care (01) ==
PROVIDERS: Visit Provider Surgery
DX: K80.50 Calculus of bile duct without cholangitis or cholecystitis without obstruction (principal); K80.20 Calculus of gallbladder without cholecystitis without obstruction
CPT/HCPCS: 99024

== ENCOUNTER → 2023-09-20 15:23 | Outpatient (BNVA) | payer OTHER, SELFPAY | PROVIDERS: Visit Provider Surgery ==

== ENCOUNTER 2025-01-09 04:27 | Emergency (ER) | payer OTHER, SELFPAY ==
--- NOTE | ~2025-01-09 | CT_ITS ---
CLINICAL HISTORY: flank pain, R side. CT abdomen and pelvis without contrast Comparison: None provided Findings: The lung bases are clear. The appearance of the liver suggests fatty infiltration. Solid organs are otherwise within normal limits. There are no abnormal findings in the gallbladder fossa. No renal stones. No bowel obstruction, pneumoperitoneum, or pneumatosis. Pelvic contents unremarkable. Normal appendix. The bones are intact. IMPRESSION: Hepatic steatosis. This document has been electronically signed by: Deyvi Spence MD on 01/09/2025 07:40:07
[2025-01-09 04:32] VITALS: BP 111/65; PULSE 79; RESP 20; TEMP 36.4; O2SAT 97; BMI 42.9
--- NOTE | 2025-01-09 05:23 | ED_ITS ---
HPI - Abdominal Pain General Chief Complaint: Abdominal Pain Stated Complaint: abd pain Time Seen by Provider: 01/09/25 04:45 History of Present Illness ED Provider: Onesimo Thomas MD HPI narrative: 34-year-old female with no significant medical or surgical history aside from cholecystectomy she is complaining about 2 weeks of pain diffusely in the abdomen little bit of loose stool no blood. Right flank pain started and some mild dysuria. No fever Related Data Home Medications ?Medication ?Instructions ?Recorded ?Confirmed multivitamin 1 tab PO DAILY 09/10/2308/17 Previous Rx's ?Medication ?Instructions ?Recorded ondansetron 4 mg disintegrating 4 mg PO Q8H PRN nausea and 08/17/23 tablet vomiting 5 days #15 tabs oxycodone 5 mg tablet 5 mg PO Q6H PRN pain (scale score 09/10/23 7-10) #15 tabs acetaminophen 500 mg tablet 1,000 mg (2 x 500 mg) PO Q 6H PRN 01/09/25 (Tylenol Extra Strength) fever or pain #20 tabs cyclobenzaprine 10 mg tablet 10 mg PO TID PRN muscle p ain or 01/09/25 spasm #20 tabs ondansetron 4 mg disintegrating 4 mg PO Q6-8H PRN naus ea and 01/09/25 tablet vomiting #14 tabs oxycodone 5 mg tablet 5 mg PO Q4H PRN pain #14 tab s 01/09/25 Allergies Allergy/AdvReac Type Severity Reaction Status Date / Time No Known Allergies Allergy Verified 01/09/25 04:34 [facility] Past Medical History Medical History (Updated 01/09/25 @ 12:06 by Alexander Rocha MD) Biju's disease Heartburn during Gallstone Surgical History Hx laparoscopic cholecystectomy (09/10/23) Hx of endoscopy Hx of colonoscopy Social History Social History Alcohol intake: current Alcohol intake frequency: does not drink Patient Tobacco Use Status: Never used Tobacco Physical Exam ED Exam Exam: EXAM: Gen: Alert, awake, well appearing, well hydrated. Head: Atraumatic Eyes: Anicteric, Normal conjunctiva. ENT: Moist mucosa, no pallor. ? Neck: Supple. Skin: ?No observable rash or bruising on exposed or examined skin Respiratory: Breathing comfortably, No distress.Clear to auscultation bilaterally, symmetric chest expansion, No wheeze, rales, ronchi. Cardiovascular: Regular rate and rhythm. No murmurs or rub. Well perfused periphery, warm extremities. No edema. ? Abdominal: No focal tenderness. Soft, no objective distension. No palpable masses or obvious organomegaly. ?No guarding, no rebound tenderness or other peritoneal findings. : Right CVA tenderness Neuro: Alert. Gross movement of all extremities intact. ? Psych: Calm. Cooperative. MSK: No grossly visible deformity. Vital signs: See flowsheet Vital Signs: Vital Signs - 24 hr 01/09/25 04:32 01/09/25 06:12 01/09/25 08:45 Temperature 97.5 F 97.5 F Pulse Rate 79 78 62 Respiratory Rate 20 16 18 Blood Pressure 111/65 123/81 113/67 Pulse Oximetry 97 98 98 Oxygen Delivery Method Room Air Room Air Room Air 01/09/25 11:42 01/09/25 12:14 Temperature 97.8 F Pulse Rate 74 74 Respiratory Rate 17 17 Blood Pressure 139/94 H 139/94 H Pulse Oximetry 98 98 Oxygen Delivery Method Room Air Room Air BMI result Body Mass Index 42.9 Course Course Course Narrative: 01/09/2025 at 12:14 hours, Dr. Alexander Rocha's note: I assumed care of this patient from my colleague, Dr. Thomas at 07:00 hours The patient is a 34-year-old female with a history of biliary colic status post cholecystectomy, IBS, Biju's thyroiditis, who presents emergency department for evaluation of stomach pain and flank pain x2 weeks. She describes the pain is a constant dull ache with an occasional sharp pain. Patient had associated nausea with no vomiting. Patient's saw her PCP on 01/08/2024 (3 days prior to evaluation) Bhupendra's noted to have blood in your urine. Patient states that her PCP ordered laboratory evaluation CT abdomen pelvis however the studies have not been performed yet. Patient states that her pain got significantly worse therefore she came to the emergency department for evaluation. She denied fever but did have hot flash/chills. She denied urinary frequency but did have dysuria. Exam, Abdomen: Mild to moderate epigastric and upper abdominal tenderness with no rebound, normoactive bowel sounds, no voluntary or involuntary guarding Back: Mild to moderate bilateral CVA tenderness, tenderness palpation over the paraspinal muscles in the lumbar sacral area bilaterally My independent interpretation patient's laboratory evaluation is as follows: WBC was normal 7200. Chronic normocytic anemia with an H&H of 11.6 and 34.4. CMP was normal except for an elevated ALT of 35. Quantitative beta-hCG was below detectable limits. Urinalysis revealed trace leukocyte esterase. Microscopic revealed 0-2 RBCs, 0-5 WBCs, 6-10 squamous cells, trace bacteria, negative test. CT abdomen pelvis without IV contrast did not reveal any clear etiology for the patient's pain. Patient did have hepatic steatosis but has no significant elevation of her LFTs at this time. I did discuss these findings with the patient. At this time I do not have a clear etiology for the patient's pain. Patient was advised to take Tylenol for pain and for pain not relieved by Tylenol she was prescribed oxycodone. Patient was also prescribed Flexeril for back pain and Zofran ODT for nausea. She was given printed and verbal instructions and discharged home. Medical Decision Making Medical Decision Making MDM Narrative: 34-year-old female with right flank pain generalized abdominal discomfort and urinary symptoms going on about 2 weeks somewhat worsening. No fever or chills she has flank tenderness but has stable vitals Working diagnosis is pyelonephritis verse kidney stone versus musculoskeletal etiology. She does have IBS this could be flare or related to this chronic GI diagnosis Pending lab work urinalysis Preliminary Favored Differential Diagnosis: Pyelonephritis kidney stone musculoskeletal pain IBS electrolyte derangement among additional considered etiologies Testing Interpreted Independently: Not Applicable Radiology or Lab testing Results Reviewed: Not Applicable Consults: Not Applicable Independent Historians/External Chart Reviews: Not Applicable Social Determinants of Health Impacting MDM/Planning: Not Applicable Lab Data 01/09/25 05:44 01/09/25 05:44 Labs: Lab Results 01/09/25 01/09/25 Range/Units 05:44 06:23 WBC 7.2 (4.8-10.8) X10*3/uL RBC 4.05 L (4.20-5.50) X10*6/uL Hgb 11.6 L (12.0-16.0) g/dl Hct 34.4 L (37.0-47.0) % MCV 84.9 (80.0-98.0) fL MCH 28.6 (27.0-33.0) pg MCHC 33.7 (31.0-35.0) g/dl RDW 12.7 (11.0-16.0) % Plt Count 284 (160-400) X10*3/uL MPV 9.3 L (9.4-12.3) fL Immature Gran % (Auto) 0.3 (0.0-0.4) % Neut % (Auto) 65.4 (45-73) % Lymph % (Auto) 27.7 (20-40) % [place] % (Auto) 4.2 (2-11) % Eos % (Auto) 1.8 (0-4) % Baso % (Auto) 0.6 (0-2) % Lymph # (Auto) 2.0 (1.2-4.9) X10*3/uL [place] # (Auto) 0.3 (0.1-1.2) X10*3/uL Eos # (Auto) 0.1 (0.0-0.4) X10*3/uL Baso # (Auto) 0.0 (0.0-0.2) X10*3/uL Abs Immat Gran (auto) 0.02 (0.00-0.03) X10*3/uL Absolute Neuts (auto) 4.7 (2.0-8.3) x10*3/uL Absolute Nucleated RBC 0.000 (0.0-0.012) X10*3/uL Nucleated RBC % (auto) 0.0 (0.0-0.2) /100WBC Sodium 139 (135-145) mmol/L Potassium 3.9 (3.3-5.1) mmol/L Chloride 108 (96-108) mmol/L Carbon Dioxide 23 (22-29) mmol/L Anion Gap 12 (12-20) BUN 10 (9-16) mg/dL Creatinine 0.67 (0.5-1.4) mg/dL Estim Creat Clear Calc 147.4 Estimated GFR > 60 Random Glucose 91 (60-115) mg/dL Calcium 8.6 D (8.4-10.2) mg/dL Total Bilirubin 0.4 (0.0-1.0) mg/dL AST 19 (5-31) U/L ALT 35 H (0-31) U/L Alkaline Phosphatase 57 (39-117) U/L Total Protein 6.9 (6.5-8.0) g/dL Albumin 4.2 (3.5-5.0) g/dL Beta HCG, Quant < 2 mIU/mL Urine Color Yellow Urine Appearance Clear Urine pH 6.0 (5.0-9.0) Ur Specific [place] 1.010 (1.005-1.025) Urine Protein Negative (Neg-Trace) mg/dL Urine Glucose (UA) Negative (Negative) mg/dL Urine Ketones Negative (Negative) mg/dL Urine Blood Negative (Negative) Urine Nitrite Negative (Negative) Ur Leukocyte Esterase Trace H (Negative) Urine RBC 0-2 (0-2) /HPF Urine WBC 0-5 (0-5) /HPF Ur Squamous Epith Cells 6-10 (0-2) /HPF Urine Bacteria Trace (None Seen) Hyaline Casts 0-2 (0-2) /LPF Urine Test NEGATIVE (NEGATIVE) Radiology Impression Discussion of test interpretation with radiology: I have reviewed the radiologist's reading. Radiologist Impression: CT abdomen and pelvis without contrast Comparison: None provided Findings: The lung bases are clear. The appearance of the liver suggests fatty infiltration. Solid organs are otherwise within normal limits. There are no abnormal findings in the gallbladder fossa. No renal stones. No bowel obstruction, pneumoperitoneum, or pneumatosis. Pelvic contents unremarkable. Normal appendix. The bones are intact. IMPRESSION: Hepatic steatosis. This document has been electronically signed by: Deyvi Spence MD on 01/09/2025 07:40:07 Medications Administered Discontinued Medications Generic Name Dose Route Start Last Admin Trade Name Freq PRN Reason Stop Dose Admin Ibuprofen 600 mg 01/09/25 04:46 01/09/25 05:40 Ibuprofen 600 Mg Tablet PO 01/09/25 04:47 600 mg ONCE ONE Administration Discharge Plan Discharge Clinical Impression: Bilateral flank pain Abdominal pain Qualifiers: Abdominal location: unspecified location Qualified Code(s): R10.9 - Unspecified abdominal pain Patient Disposition: Home, Self-Care Instructions: Abdominal Pain (ED), Flank Pain (ED) Additional Instructions: You had a complete blood count (CBC). Your white blood cell count was normal. Your hemoglobin and hematocrit (red blood cell counts) were low at 11.6 and 34.4. Normal hemoglobin is 12 to 16. Normal hematocrit is 37-47%. This is most likely low due to iron deficiency. Please take a multivitamin with iron once and they and this should hopefully improve your blood counts. You had a comprehensive metabolic panel (CMP). All of these tests were normal including your electrolytes, your kidney function, your liver tests and your pancreas test. Your test was negative. Your urinalysis was positive for leukocyte esterase. The microscopic evaluation however did not reveal a significant amount of red blood cells or white blood cells. The CAT scan of your abdomen pelvis did not reveal a clear cause for your your pain. Take Tylenol (acetaminophen) 500 mg pills, 2 pills every 6 hours as needed for pain. For pain not relieved by ibuprofen or Tylenol take oxycodone 5 mg pills, 1 pill every 4 hours as needed for pain. Do not drive or work while taking this medication since they can cause sleepiness. Oxycodone is a narcotic medication that can be addicting. If you are concerned about addiction you can ask the pharmacist for less pills or do not get this prescription filled. Take Flexeril (cyclobenzaprine) 10 mg pills, 1 pill every 6-8 hours as needed for pain or spasm. ?This medication will make you sleepy. ?Do not drive or work while taking this medication. Take Zofran ODT 4 mg pills, 1 pill dissolved in your mouth every 8 hours as needed for nausea and vomiting. Follow-up with your doctor in 2 days. Please return to the emergency department if your symptoms get worse or if you develop any symptoms that are concerning to you. Prescriptions: New cyclobenzaprine 10 mg tablet 10 mg PO TID PRN (Reason: muscle pain or spasm) Qty: 20 0RF ondansetron 4 mg tablet,disintegrating 4 mg PO Q6-8H PRN (Reason: nausea and vomiting) Qty: 14 0RF acetaminophen [Tylenol Extra Strength] 500 mg tablet 1,000 mg PO Q6H PRN (Reason: fever or pain) Qty: 20 0RF oxycodone 5 mg tablet 5 mg PO Q4H PRN (Reason: pain) Qty: 14 0RF Rx Instructions: Partial Fill upon patient request. No Action ondansetron 4 mg tablet,disintegrating 4 mg PO Q8H PRN (Reason: nausea and vomiting) 5 Days Qty: 15 0RF multivitamin Tablet 1 tab PO DAILY oxycodone 5 mg tablet 5 mg PO Q6H PRN (Reason: pain (scale score 7-10)) Qty: 15 0RF Rx Instructions: Partial Fill upon patient request. Interventions: ED Discharge Assessment Last Done: 01/09/25 12:14 Discharge Date/Time: 01/09/25 12:20 Print Language: Angolan
[2025-01-09 05:49] LABS: MANUAL DIFF FLAG NO
[2025-01-09 05:50] LABS: Hematocrit 34.4 % (37.0-47.0); Hemoglobin 11.6 g/dl (12.0-16.0); Imm Gran Abs Auto 0.02 X10*3/uL (0.00-0.03); Imm Gran Pct Auto 0.3 % (0.0-0.4); Lymphocytes Absolute Auto 2.0 X10*3/uL (1.2-4.9); Mean Corpuscular HGB Conc 33.7 g/dl (31.0-35.0); Mean Corpuscular Hemoglobin 28.6 pg (27.0-33.0); Mean Corpuscular Volume 84.9 fL (80.0-98.0); NRBC Abs Auto 0.000 X10*3/uL (0.0-0.012); NRBC Pct Auto 0.0 /100WBC (0.0-0.2); Platelet Count 284 X10*3/uL (160-400); Red Blood Count 4.05 X10*6/uL (4.20-5.50); White Blood Count 7.2 X10*3/uL (4.8-10.8)
--- NOTE | 2025-01-09 05:54 | PC.NURSE ---
labs drawn via straight stick. pt medicated per mar, gave crackers d/t pt taking ibuprofen on empty stomach. pt states unable to provide urine sample at this time. call garcia within reach.
[2025-01-09 06:12] VITALS: BP 123/81; PULSE 78; RESP 16; TEMP 36.4; O2SAT 98
[2025-01-09 06:16] LABS: Alanine Aminotransferase 35 U/L (0-31); Albumin Level 4.2 g/dL (3.5-5.0); Alkaline Phosphatase 57 U/L (39-117); Anion Gap 12 (12-20); Aspartate Amino Transferase 19 U/L (5-31); Blood Urea Nitrogen 10 mg/dL (9-16); Calcium 8.6 mg/dL (8.4-10.2); Carbon Dioxide 23 mmol/L (22-29); Chloride 108 mmol/L (96-108); Creatinine Clr Calc Pharmacy 147.4; Estimated Glomerular Filt Rate > 60; Potassium 3.9 mmol/L (3.3-5.1); Sodium 139 mmol/L (135-145); Total Protein 6.9 g/dL (6.5-8.0)
[2025-01-09 06:30] LABS: Appearance Urine Clear; Glucose Urine UA Negative (Negative); PH 6.0 (5.0-9.0); Specific Gravity - Urine 1.010 (1.005-1.025); UMIC TRIGGER UACC YES
[2025-01-09 06:33] LABS: UPreg QC Valid YES
[2025-01-09 08:45] VITALS: BP 113/67; PULSE 62; RESP 18; O2SAT 98
[2025-01-09 11:42] VITALS: BP 139/94; PULSE 74; RESP 17; O2SAT 98
[2025-01-09 12:14] VITALS: BP 139/94; PULSE 74; RESP 17; TEMP 36.6; O2SAT 98
== END 2025-01-09 12:20 | disposition home or self-care (01) ==
PROVIDERS: Emergency Medicine; Emergency Provider Emergency Medicine Emergency Medical Services
DX: R10.2 Pelvic and perineal pain (principal); R30.0 Dysuria; R11.0 Nausea; R10.816 Epigastric abdominal tenderness; Z79.899 Other long term (current) drug therapy
CPT/HCPCS: 36415; 74176; 80053; 81001; 81025; 84702; 85025; 99284

== ENCOUNTER → 2025-01-09 05:22 | Outpatient (BNV) | payer OTHER, SELFPAY | PROVIDERS: Emergency Provider Emergency Medicine Emergency Medical Services; Visit Provider Specialist | DX: R10.11 Right upper quadrant pain (principal) | CPT/HCPCS: 74176 ==